=== PATIENT | female | born 1980 | race American Indian/Alaskan Native ===

== ENCOUNTER 2019-04-26 13:41 | Emergency (ER) | payer SELFPAY ==
[2019-04-26 17:38] VITALS: BP 133/79
--- NOTE | 2019-04-26 17:53 | Emergency Department Report ---
ED Abdominal Pain HPI - General Chief Complaint: Abdominal Pain Stated Complaint: PAIN STOMACH Time Seen by Provider: 04/26/19 17:48 Source: patient Mode of arrival: Ambulatory Limitations: No Limitations - History of Present Illness Initial Comments: 38-year-old female presents to the emergency room complaining of abdominal pain for 3 days. Patient reports nausea vomiting after eating. Patient expresses pain to the epigastric area. Patient complains of fatigue tiredness no energy decreased appetite. She has a past medical history of diabetes hypertension she's had a cholecystectomy. Patient reports that she has had H. pylori in the past and was treated but still continues to have epigastric pain. . MD Complaint: abdominal pain Onset/Timin Location: epigastric Severity scale (0 -10): 9 Consistency: intermittent Improves With: nothing Worsens With: eating, vomiting Associated Symptoms: nausea, vomiting, diarrhea. denies: fever - Related Data Previous Rx's Medication Instructions Recorded Last Taken Type Omeprazole 40 mg PO QDAY #30 capsule. 04/26/19 Unknown Rx Allergies Allergy/AdvReac Type Severity Reaction Status Date / Time iron Allergy Anaphylaxis Verified 04/26/19 14:38 ED Review of Systems ROS: Stated complaint: PAIN STOMACH Other details as noted in HPI Comment: All other systems reviewed and negative Constitutional: denies: chills, fever Eyes: denies: eye pain, eye discharge, vision change ENT: denies: ear pain, throat pain Respiratory: denies: cough, shortness of breath, wheezing Cardiovascular: denies: chest pain, palpitations Gastrointestinal: abdominal pain, nausea, vomiting, diarrhea Genitourinary: denies: urgency, dysuria, discharge Musculoskeletal: denies: back pain, joint swelling, arthralgia Skin: denies: rash, lesions Neurological: denies: headache, weakness, paresthesias Psychiatric: denies: anxiety, depression Hematological/Lymphatic: denies: easy bleeding, easy bruising ED Past Medical Hx - Past Medical History Hx Hypertension: Yes Hx Diabetes: Yes - Surgical History Hx Cholecystectomy: Yes Additional Surgical History: right knee - Social History Smoking Status: Never Smoker Substance Use Type: None - Medications Home Medications: Home Medications Medication Instructions Recorded Confirmed Last Taken Type Omeprazole 40 mg PO QDAY #30 capsule. 04/26/19 Unknown Rx ED Physical Exam - General Limitations: No Limitations General appearance: alert, in no apparent distress - Head Head exam: Present: atraumatic, normocephalic - ENT ENT exam: Present: mucous membranes moist - Respiratory Respiratory exam: Present: normal lung sounds bilaterally. Absent: respiratory distress - Cardiovascular Cardiovascular Exam: Present: tachycardia - GI/Abdominal GI/Abdominal exam: Present: soft, tenderness (suprapubic and epigastric), normal bowel sounds. Absent: distended - Extremities Exam Extremities exam: Present: normal inspection - Neurological Exam Neurological exam: Present: alert, oriented X3 - Psychiatric Psychiatric exam: Present: normal affect, normal mood - Skin Skin exam: Present: warm, dry, intact, normal color. Absent: rash ED Course Vital Signs 04/26/19 04/26/19 14:39 17:37 Temperature 98.2 F 98.5 F Pulse Rate 94 H 79 Respiratory 20 18 Rate Blood Pressure 132/75 Blood Pressure 133/79 [Right] O2 Sat by Pulse 99 100 Oximetry ED Medical Decision Making - Lab Data Laboratory Tests 04/26/19 04/26/19 04/26/19 18:30 Unknown Unknown WBC 7.7 RBC 4.82 Hgb 11.2 Hct 35.9 MCV 75 L MCH 23 L MCHC 31 RDW 15.8 H Plt Count 330 Lymph % (Auto) 47.6 H Hale % (Auto) 5.3 Eos % (Auto) 1.6 Baso % (Auto) 0.5 Lymph # 3.7 Hale # 0.4 Eos # 0.1 Baso # 0.0 Seg Neutrophils % 45.0 Seg Neutrophils # 3.5 Sodium 138 Potassium 3.5 L Chloride 97.8 L Carbon Dioxide 24 Anion Gap 20 BUN 8 Creatinine 0.6 L Estimated GFR > 60 BUN/Creatinine Ratio 13 Glucose 97 Calcium 9.3 Total Bilirubin 0.30 AST 27 ALT 19 Alkaline Phosphatase 71 Total Protein 8.4 H Albumin 4.6 Albumin/Globulin Ratio 1.2 Lipase 16 Urine Color Yellow Urine Turbidity Clear Urine pH 6.0 Ur Specific [place] 1.006 Urine Protein <15 mg/dl Urine Glucose (UA) Neg Urine Ketones Neg Urine Blood Mod Urine Nitrite Neg Urine Bilirubin Neg Urine Urobilinogen < 2.0 Ur Leukocyte Esterase Sm Urine WBC (Auto) 4.0 Urine RBC (Auto) 1.0 U Epithel Cells (Auto) < 1.0 Urine Bacteria (Auto) 1+ Urine Mucus Few Urine HCG, Qual Negative - Radiology Data Radiology results: report reviewed Patient: GEORGI PARR MR#: [id number] [birth year] Acct:[id number] Age/Sex: 38 / F ADM Date: 04/26/19 Loc: ED Attending Dr: Ordering Physician: ETHEL HWANG Date of Service: 04/26/19 Procedure(s): CT abdomen pelvis w con Accession Number(s): [id number] cc: ETHEL HWANG CT ABDOMEN AND PELVIS WITH CONTRAST HISTORY: epigastric pain and tenderness. COMPARISON: CT abdomen/pelvis from 10/16/2012 TECHNIQUE: CT images of the abdomen and pelvis were obtained following admi nistration of intravenous contrast. All CT scans at this location are performed using CT dose reduction for ALARA by means of automated exposure control. CONTRAST: 100 ml of intravenous contrast administered. FINDINGS: Lungs/bones: A tiny nodule seen along the right major fissure on image #7 of series 2 which is likely a perifissural lymph node. Lung bases are otherwise clear. There is no acute osseous abnormality. Abdomen/pelvis: The gallbladder surgically absent. There is mild hepatic steatosis. The spleen, pancreas, adrenals, right kidney, and proximal GI tract appear unremarkable. There is a 2 mm nonobstructive calyceal stone in the mid to upper pole of the left kidney. Urinary bladder and reproductive organs appear unremarkable with small nabothian cysts present near the cervix. No pelvic free fluid and no acute colonic abnormality is patient with diverticulosis. The appendix is normal. IMPRESSION: 1. No acute abnormality identified. 2. Incidental findings as above. Signer Name: Yaya Rico MD Signed: 04/26/2019 7:59 PM Workstation Name: [id number] Transcribed By: ROMY Dictated By: Yaya Rico MD Electronically Authenticated By: Yaya Rico MD Signed Date/Time: 04/26/191958 DD/ 56 TD/TT: - Medical Decision Making 38-year-old female presents to the emergency room complaining of abdominal pain for 3 days. Patient reports nausea vomiting after eating. Patient expresses pain to the epigastric area. Patient complains of fatigue tiredness no energy decreased appetite. She has a past medical history of diabetes hypertension she's had a cholecystectomy. Critical care attestation.: If time is entered above; I have spent that time in minutes in the direct care of this critically ill patient, excluding procedure time. ED Disposition Clinical Impression: Epigastric pain Disposition: DC-01 TO HOME OR SELFCARE Is pt being admited?: No Does the pt Need Aspirin: No Condition: Stable Instructions: Abdominal Pain (ED) Prescriptions: Omeprazole 40 mg PO QDAY #30 capsule. Referrals: [facility] [Provider Group] - 3-5 Days
[2019-04-26] MEDS ORDERED: NACL 0.9% 1000 ML 1,000 ML IV ONE (18:19)
[2019-04-26 18:55] LABS: Bacteria,Urine 1+ /HPF (Negative); Bilirubin,Urine NEG (Negative); Blood,Urine MOD (Negative); Color,Urine Yellow (Yellow); Mucus,Urine FEW /HPF; Protein,Urine <15 mg/dL mg/dL (Negative); Urobilinogen,Urine < 2.0 mg/dL (<2.0)
[2019-04-26 18:58] LABS: HCG Qualitative,Urine Negative (Negative)
[2019-04-26] MEDS ORDERED: ZOFRAN IV ONE (18:58)
[2019-04-26] MEDS ORDERED: ZOFRAN ONE (19:01)
[2019-04-26 19:19] LABS: Alanine Aminotransferase 19 units/L (7-56); Albumin 4.6 g/dL (3.9-5); BUN/Creatinine Ratio 13; Blood Urea Nitrogen 8 mg/dL (7-17); Calcium 9.3 mg/dL (8.4-10.2); Hemolysis Index 20
--- NOTE | 2019-04-26 20:04 | Cat Scan Report ---
CT ABDOMEN AND PELVIS WITH CONTRAST HISTORY: epigastric pain and tenderness. COMPARISON: CT abdomen/pelvis from 10/16/2012 TECHNIQUE: CT images of the abdomen and pelvis were obtained following administration of intravenous contrast. All CT scans at this location are performed using CT dose reduction for ALARA by means of automated exposure control. CONTRAST: 100 ml of intravenous contrast administered. FINDINGS: Lungs/bones: A tiny nodule seen along the right major fissure on image #7 of series 2 which is likel y a perifissural lymph node. Lung bases are otherwise clear. There is no acute osseous abnormality. Abdomen/pelvis: The gallbladder surgically absent. There is mild hepatic steatosis. The spleen, panc reas, adrenals, right kidney, and proximal GI tract appear unremarkable. There is a 2 mm nonobstructi ve calyceal stone in the mid to upper pole of the left kidney. Urinary bladder and reproductive organs appear unremarkable with small nabothian cysts present near t he cervix. No pelvic free fluid and no acute colonic abnormality is patient with diverticulosis. The appendix is normal. IMPRESSION: 1. No acute abnormality identified. 2. Incidental findings as above. Signer Name: Yaya Rico MD Signed: 04/26/2019 7:59 PM Workstation Name: [id number]
[2019-04-26 20:55] LABS: Basophils % (Auto) 0.5 % (0.0-1.8); Eosinophils # (Auto) 0.1 K/mm3 (0.0-0.4); Eosinophils % (Auto) 1.6 % (0.0-4.3); Hematocrit 35.9 % (30.3-42.9); Hemoglobin 11.2 gm/dl (10.1-14.3); Lymphocytes # (Auto) 3.7 K/mm3 (1.2-5.4); Lymphocytes % (Auto) 47.6 % (13.4-35.0); Mean Corpuscular HGB Conc 31 % (30-34); Mean Corpuscular Volume 75 fl (79-97); Monocytes # (Auto) 0.4 K/mm3 (0.0-0.8); Monocytes % (Auto) 5.3 % (0.0-7.3); Platelet Count 330 K/mm3 (140-440); Red Blood Count 4.82 M/mm3 (3.65-5.03); Red Cell Distribution Width 15.8 % (13.2-15.2)
[2019-04-26] MEDS ORDERED: TYLENOL PO ONE (21:06)
[2019-04-26] MEDS ORDERED: TYLENOL ONE (21:08)
== END 2019-04-26 22:05 | disposition home or self-care (01) ==
LOC: ED 13:41
DX: R10.13 Epigastric pain (principal); R11.2 Nausea with vomiting, unspecified; R19.7 Diarrhea, unspecified; I10 Essential (primary) hypertension; E11.9 Type 2 diabetes mellitus without complications; Z90.49 Acquired absence of other specified parts of digestive tract; Z91.09 Other allergy status, other than to drugs and biological substances
CPT/HCPCS: 36415; 74177; 80053; 81001; 81025; 83690; 85025; 96374; 99284; J2405; J7030; Q9967